=== PATIENT | female | born 1985 | race Caucasian/White ===

== ENCOUNTER 2017-01-16 19:36 | Emergency (ER) | payer OTHER ==
[~2017-01-16] VITALS: Ht 160 cm; Wt 68.4 kg
[~2017-01-16 19:36] MED LIST: NATALCARE RX1 TABLET PO
[2017-01-16 20:35] LABS: HEMATOCRIT 46.1 % (36.0-46.0); MCH 31.7 PG (29.0-34.0); MCHC 34.3 G/DL (30.0-36.0); MCV 92.4 FL (83-99); MEAN PLAT.VOLUME 9.3 uM^3 (9.5-12.4); PLATELET COUNT 296 K/uL (156-360); RBC DIS.WIDTH-SD 40.7 % (39-53); RED BLOOD COUNT 4.99 M/uL (3.80-5.20); WHITE BLOOD COUNT 10.7 K/uL (4.1-10.2)
[2017-01-16 20:45] LABS: CHLORIDE 106 mEq/L (99-109); POTASSIUM 4.5 mEq/L (3.7-5.4); SODIUM 142 mEq/L (136-147)
[2017-01-16 20:46] LABS: GLUCOSE 110 mg/dL (70-99)
[2017-01-16 20:48] LABS: ANION GAP 14 MEQ/L (2-14)
[2017-01-16 20:50] LABS: GFR ESTIMATE (CALCULATED) > 59 mL/min/
[2017-01-16 20:51] LABS: UREA NITROGEN (BUN) 12 mg/dL (9-23)
[2017-01-16 21:59] LABS: ADD MIUA? YES; BILIRUBIN NEGATIVE; BLOOD LARGE; COLOR YELLOW ((YELLOW)); GLUCOSE (STRIP) NEGATIVE; KETONES 5; LEUKOCYTES NEGATIVE; NITRITE NEGATIVE; PROTEIN (STRIP) 100; SPECIFIC GRAVITY 1.019 (1.000-1.030); UROBILINOGEN 0.2 MG/DL (0.2-1.0)
[2017-01-16 22:17] LABS: RED BLOOD CELLS TNTC /HPF (0-5)
[2017-01-16 22:18] LABS: EPITHELIAL CELLS RARE /HPF; MUCUS TRACE /LPF
[2017-01-16] MEDS ORDERED: PERCOCET 5/31 TABLET PO (22:52)
[2017-01-16] MEDS ORDERED: FLOMAX0.4 MG PO (22:52)
[2017-01-16] MEDS ORDERED: ZOFRAN4 MG PO (22:52)
[2017-01-17 00:26] VITALS: BP 137/84
[2017-01-19] MEDS ORDERED: FLOMAX0.4 MG PO (12:14)
[2017-01-19] MEDS ORDERED: PERCOCET 5/31 TABLET PO (12:15)
[2017-01-19] MEDS ORDERED: ZOFRAN4 MG PO (12:16)
[2017-01-19] MEDS ORDERED: DEPO-PROVER150 MG/ML IM (12:16)
[2017-01-19] MEDS ORDERED: NORVASC10 MG PO (13:17)
== END 2017-01-17 00:30 | disposition home or self-care (01) ==
LOC: EME 19:36
DX: N20.0 Calculus of kidney (principal); F41.9 Anxiety disorder, unspecified; F32.9 Major depressive disorder, single episode, unspecified; F17.200 Nicotine dependence, unspecified, uncomplicated; Z91.040 Latex allergy status
CPT/HCPCS: 74176; 80048; 81003; 85027; 87086; 99281; 99285; J1885; J2270

== ENCOUNTER → 2017-01-22 | Outpatient (CLI) | payer OTHER ==
[~2017-01-22] VITALS: Ht 160 cm; Wt 68.1 kg
[~2017-01-22] MED LIST changes: +DEPO-PROVER150 MG/ML IM; +FLOMAX0.4 MG PO; +NORVASC10 MG PO; +PERCOCET 5/31 TABLET PO; +ZOFRAN4 MG PO
== END | disposition home or self-care (01) ==
LOC: AMB 10:47
PROC: 0TF3XZZ Fragmentation in Right Kidney Pelvis, External Approach (ICD-10-PCS; principal; 2017-01-22)
DX: N20.1 Calculus of ureter (principal)
CPT/HCPCS: 74010; 93005; J2250; J2405; J3010